=== PATIENT | female | born 1985 | race Caucasian/White ===

== ENCOUNTER 2025-02-10 10:25 | Emergency (ER) | payer BC, SELFPAY ==
--- NOTE | 2025-02-10 10:27 | ED.EAR ---
HPI - Ear Problem General Chief complaint: Ear Stated complaint: EARACHE Time Seen by Provider: 02/10/25 10:27 Source: patient Mode of arrival: ambulatory Limitations: no limitations History of Present Illness HPI Narrative: Amada is a 40-year-old female patient presenting to the clinic today with complaints of left ear pain. Reports her symptoms started on Thursday night on with some left ear pain and she developed fever yesterday. Highest fever was 102? F. denies much nasal congestion but does report that her throat does hurt some. She works as a teacher. Thinks she may have an ear infection. Related Data Home Medications ?Medication ?Instructions ?Recorded ?Confirmed ?Last Taken ?Type spironolactone 100 mg tablet mg 02/10/25 Unknown History Allergies Allergy/AdvReac Type Severity Reaction Status Date / Time No Known Allergies Allergy Verified 02/10/25 10:44 Review of Systems Review of Systems: Pertinent positives per HPI. Patient denies any rash, headache, visual changes, dizziness, cough, shortness of breath, chest pain, palpitations, nausea, vomiting, diarrhea, constipation, abdominal pain, or any urinary issues. PMFSH Comments At the time of my signature, I reviewed and agree with the nursing past medical, surgical, social, and family history. There is no relevant family history pertinent to the patient complaint. Exam Narrative: General: Well-developed, well nourished, in no apparent distress Head: Normocephalic, atraumatic Eyes: Pupils equally round and reactive to light bilaterally, EOM intact, sclera and conjunctive clear, no discharge, lids normal Ears: Right TMs intact and clear, left TM intact, congested, mild bulging, ear canals clear, no drainage, grossly hearing normal. Nose: Nares patent, no discharge, no inflammation, no sinus tenderness. Mouth: Oropharynx red with left-sided tonsillar enlargement with exudate, without lesions or masses, good dentition, MMM. Neck: Supple, trachea midline, enlargement of anterior cervical nodes, no thyroid masses or goiter palpable. Cardio: Regular rate and rhythm, s1 and s2 normal, no murmur appreciated. Resp: Clear to auscultation bilaterally anteriorly and posteriorly, no rhonchi, rales, wheezing or rubs Course Course Emergency Course: Portions of this record may have been created with voice recognition software. Level of Care: Express Care Visit Vital Signs Vital signs: Vital Signs Temperature 37.1 C 02/10/25 10:34 Pulse Rate 86 02/10/25 10:34 Respiratory Rate 14 02/10/25 10:34 Blood Pressure 123/99 H 02/10/25 10:34 Pulse Oximetry 100 02/10/25 10:34 Oxygen Delivery Room Air 02/10/25 10:34 Temperature 37.1 C 02/10/25 10:34 Pulse Rate 86 02/10/25 10:34 Respiratory Rate 14 02/10/25 10:34 Blood Pressure 123/99 H 02/10/25 10:34 Pulse Oximetry 100 02/10/25 10:34 Oxygen Delivery Room Air 02/10/25 10:34 Vital signs reviewed Medical Decision Making MDM Narrative Medical decision making narrative: At the time of visit patient is resting comfortably on the exam table. Patient appears to be nontoxic. Complaints of left ear pain. Reports her symptoms started on Thursday night on with some left ear pain and she developed fever yesterday. Highest fever was 102? F. denies much nasal congestion but does report that her throat does hurt some. She works as a teacher. On exam patient has right TM intact and clear, left TM intact, bulging, congested, no nasal drainage, oral pharynx mildly red with left tonsillar enlargement with exudate to the tonsil, bilateral anterior cervical lymphadenopathy, lung sounds are clear, heart rates regular rate and rhythm. Strep test was ordered. Labs: Strep test was negative in the clinic today. We will send strep for culture. Plan: I suspect patient has pharyngitis/left eustachian tube dysfunction. Work note was given. Supportive measures were discussed with the patient and they voiced understanding discharge instructions and agrees to treatment plan. Return precautions reviewed Differential Diagnosis Differential Diagnosis: Otitis media, otitis sternum eustachian tube dysfunction, cerumen impaction, upper respiratory infection, serous otitis, strep pharyngitis Vital Signs Vital Signs: Vital Signs Temperature 37.1 C 02/10/25 10:34 Pulse Rate 86 02/10/25 10:34 Respiratory Rate 14 02/10/25 10:34 Blood Pressure 123/99 H 02/10/25 10:34 Pulse Oximetry 100 02/10/25 10:34 Oxygen Delivery Room Air 02/10/25 10:34 Temperature 37.1 C 02/10/25 10:34 Pulse Rate 86 02/10/25 10:34 Respiratory Rate 14 02/10/25 10:34 Blood Pressure 123/99 H 02/10/25 10:34 Pulse Oximetry 100 02/10/25 10:34 Oxygen Delivery Room Air 02/10/25 10:34 Discharge Plan Discharge Clinical Impression: Acute dysfunction of left eustachian tube Pharyngitis Qualifiers: Pharyngitis/tonsillitis etiology: unspecified etiology Qualified Code(s): J02.9 - Acute pharyngitis, unspecified Patient Disposition: Home Condition: Stable Instructions: Antibiotic Form, Pharyngitis (ED), Earache (ED) Additional Instructions: Strep test was negative in the clinic today. We will send strep for culture if this comes back positive we will contact him place you on antibiotics at that time. Increase fluids and stay well hydrated May take Tylenol or motrin as directed on bottle for pain/fever May use Flonase 1 spray in each nare daily May take OTC antihistamines such as Zyrtec or Claritin daily as directed on bottle May apply Vicks vapor rub to chest to open sinuses Sinus rinses for congestion Cepacol spray, cough drops, throat lozenges, warm tea with honey/lemon, gargle salt water to soothe throat BRAT diet for diarrhea Clear liquids x 24 hours then advance as tolerated for nausea/vomiting Go to the ED if you develop a worsening in your condition- high fever not controlled by Tylenol or Motrin, dehydration, weakness, lethargy, shortness of breath, or chest pain. Follow up with your PCP in 3-5 days if symptoms persist. Patient Language: Lithuanian Prescriptions: No Action spironolactone 100 mg tablet Follow-up/Referrals: UNKNOWN,DOCTOR [Non-Staff] Stand Alone Forms: Work/School Release IP Time of Disposition: 10:52 Quality NIHSS Nursing Documentation ED NIHSS nursing documentation: reviewed/agree
[2025-02-10 10:34] VITALS: BP 123/99; PULSE 86; RESP 14; TEMP 37.1; O2SAT 100
[2025-02-13 11:48] LABS: EDSTREPNEGPOS1 Negative (Negative)
== END 2025-02-10 10:55 | disposition home or self-care (01) ==
PROVIDERS: Emergency Provider Nurse Practitioner Family
DX: H69.92 Unspecified Eustachian tube disorder, left ear (principal); J02.9 Acute pharyngitis, unspecified
CPT/HCPCS: 87081; 87880; 99203; G0463